=== PATIENT | male | born 2000 | race Caucasian/White ===

== ENCOUNTER 2021-02-08 20:35 | Emergency (ER) | payer OTHER ==
[~2021-02-08] VITALS: Ht 182.9 cm; Wt 99.8 kg
[2021-02-08 21:20] VITALS: BP 123/78
--- NOTE | 2021-02-08 21:23 | NUR ---
TO LOBBY A/W BED AMBULATORY
[2021-02-08] MEDS ORDERED: CYCL-654 PO (23:53)
[2021-02-08] MEDS ORDERED: IBUP-2213 PO (23:53)
[2021-02-09 00:04] VITALS: BP 123/78
--- NOTE | 2021-02-09 00:05 | NUR ---
Patient discharged with v/s stable. Written and verbal after care instructions given and explained. Patient verbalized understanding. Ambulatory with steady gait. All questions addressed prior to discharge. Advised to follow up with PMD.
== END 2021-02-09 00:05 | disposition home or self-care (01) ==
LOC: MED 20:35
DX: S16.1XXA Strain of muscle, fascia and tendon at neck level, initial encounter (principal); S39.012A Strain of muscle, fascia and tendon of lower back, initial encounter; X58.XXXA Exposure to other specified factors, initial encounter; Y93.89 Activity, other specified; Y92.89 Other specified places as the place of occurrence of the external cause; Y99.8 Other external cause status
CPT/HCPCS: 99281